=== PATIENT | male | born 1985 | race Hispanic/Latino ===

== ENCOUNTER 2017-11-11 19:16 | Emergency (ER) | payer SELFPAY ==
[2017-11-11] MEDS ORDERED: TETANUS & DIPHTHERIA TOX,ADULT 0.5 ML VIAL ONE (19:36)
[2017-11-11] MEDS ORDERED: HYDROCODONE/APAP 5/325 MG TAB ONE (19:36)
--- NOTE | 2017-11-11 20:01 | ER ---
Nurse's Notes [facility] Name: Russ Carl Age: 32 yrs Sex: Male : 1985 Arrival Date: 11/11/2017 Time: 19:18 Bed 27 Private MD: out of town, doctor Diagnosis: Laceration without foreign body, left ankle Presentation: 11/11 19:19 Presenting complaint: EMS states: Possible stingray sting to left inner ankle. ed1 Transition of care: patient was not received from another setting of care. Complicating Factors: There are no complicating factors for this patient. Onset of symptoms was November 11, 2017. Risk Assessment: Do you want to hurt yourself or someone else? Patient reports no desire to harm self or others. Initial Sepsis Screen: Does the patient meet any 2 criteria? No. Patient's initial sepsis screen is negative. Does the patient have a suspected source of infection? No. Patient's initial sepsis screen is negative. Care prior to arrival: wound cleansed. 19:19 Method Of Arrival: EMS: [facility] ed1 19:27 Acuity: ERASMO 4 fc Triage Assessment: 19:21 General: Appears uncomfortable, Behavior is calm, cooperative. Pain: Complains of pain ed1 in left medial malleolus Pain radiates to left leg Pain currently is 10 out of 10 on a pain scale. Quality of pain is described as throbbing, Pain began 30 min ago. Injury Description: Laceration sustained to left medial malleolus is clean, 0.5 to 2.5 cm long, not bleeding, was sustained 30-60 minutes ago. is bleeding no active bleeding noted. Historical: - Allergies: 19:21 No Known Allergies; ed1 - Home Meds: 19:21 None [Active]; ed1 - PMHx: 19:21 None; ed1 - PSHx: 19:21 None; ed1 - Immunization history:: Adult Immunizations up to date. - Social history:: Smoking status: unknown. - Ebola Screening: : Patient negative for fever greater than or equal to 101.5 degrees Fahrenheit, and additional compatible Ebola Virus Disease symptoms Patient denies exposure to infectious person Patient denies travel to an Ebola-affected area in the 21 days before illness onset No symptoms or risks identified at this time. Screenin:24 Abuse screen: Denies threats or abuse. Denies injuries from another. Nutritional ed1 screening: No deficits noted. Tuberculosis screening: No symptoms or risk factors identified. Fall Risk None identified. Assessment: 19:24 General: Appears uncomfortable, Behavior is calm, cooperative. Pain: Complains of pain ed1 in left medial malleolus Pain radiates to left leg Pain currently is 10 out of 10 on a pain scale. Quality of pain is described as throbbing, Pain began 30 min ago. Is continuous. Neuro: Level of Consciousness is awake, alert, obeys commands, Oriented to person, place, time, situation. Cardiovascular: Denies chest pain, Heart tones S1 S2 present. Respiratory: Airway is patent Respiratory effort is even, unlabored, Respiratory pattern is regular, symmetrical, Breath sounds are clear bilaterally. GI: No signs and/or symptoms were reported involving the gastrointestinal system. : No signs and/or symptoms were reported regarding the genitourinary system. EENT: No signs and/or symptoms were reported regarding the EENT system. Derm: Skin is healthy with good turgor, Skin is dry, Skin is normal, Skin temperature is warm. Musculoskeletal: Circulation, motion, and sensation intact. Range of motion: intact in all extremities. Injury Description: Laceration sustained to left medial malleolus is puncture was sustained 30-60 minutes ago. is bleeding no active bleeding noted. 19:27 Reassessment: I agree with above assessment. 20:17 Reassessment: No changes from previously documented assessment. Patient and/or family ed1 updated on plan of care and expected duration. Pain level reassessed. Patient is alert, oriented x 3, equal unlabored respirations, skin warm/dry/pink. Patient states symptoms have not improved. Vital Signs: 19:21 BP 171 / 106; Pulse 113; Resp 22; Temp 98.2(O); Pulse Ox 100% on R/A; Weight 83.91 kg; ed1 Height 5 ft. 7 in. (170.18 cm); Pain 10/10; 20:17 BP 156 / 94; Pulse 93; Resp 22; Pulse Ox 100% on R/A; Pain 9/10; ed1 19:21 Body Mass Index 28.97 (83.91 kg, 170.18 cm) ed1 ED Course: 19:18 Patient arrived in ED. ed1 19:19 [facility] pm1 19:19 Roger Yanez MD is Attending Physician. pm1 19:19 out of town, doctor is Private Physician. ed1 19:21 Arm band placed on right wrist. ed1 19:24 Patient has correct armband on for positive identification. Bed in low position. Call ed1 light in reach. Side rails up X 1. 19:27 Triage completed. 19:27 Gretchen Suazo LVN is Primary Nurse. ed1 19:37 X-ray completed. Portable x-ray completed in exam room. Patient tolerated procedure kp1 well. 19:38 Ankle Left 3 View XRAY In Process Unspecified. EDMS 20:17 No provider procedures requiring assistance completed. Patient did not have IV access ed1 during this emergency room visit. Administered Medications: 19:39 Drug: Tetanus-Diphtheria Toxoid Adult 0.5 ml {Pyrometer Operator: Md[employer]. Exp: ed1 01/07/2020. Lot #: [id number]. } Route: IM; Site: right deltoid; 20:16 Follow up: Response: No adverse reaction ed1 19:40 Drug: [place] 5 mg-325 mg 1 tabs Route: PO; ed1 20:15 Follow up: Response: No adverse reaction; Pain is unchanged, physician notified ed1 20:15 Drug: Doxycycline 100 mg Route: PO; ed1 20:17 Follow up: Response: Medication administered at discharge. ed1 Outcome: 20:00 Discharge ordered by MD. pm1 20:17 Discharged to home ambulatory. ed1 20:17 Condition: good 20:17 Discharge instructions given to patient, Instructed on discharge instructions, follow up and referral plans. medication usage, Demonstrated understanding of instructions, follow-up care, medications, Prescriptions given X 2. 20:20 Patient left the ED. ed1 Signatures: Dispatcher [employer] EDFL Renetta Del Rio RN RN Gretchen Suazo LVN LVN ed1 Alexander Dowell NP BEHAVIORAL HEALTH CARE MANAGER pm1 Huong Lopez [facility] Corrections: (The following items were deleted from the chart) 19:28 19:21 BP 171 / 106; Pulse 113bpm; Resp 22bpm; Pulse Ox 100% RA; Temp 98.2F Oral; Pain ed1 02/16; ed1
--- NOTE | 2017-11-11 20:01 | EDPHYS ---
Physician Documentation [facility] Name: Russ Carl Age: 32 yrs Sex: Male : 1985 Arrival Date: 11/11/2017 Time: 19:18 Bed 27 Private MD: out of town, doctor ED Physician Roger Yanez HPI: 11/11 19:45 This 32 yrs old Male presents to ER via EMS with complaints of Laceration. pm1 19:45 The patient presents with a laceration, 1 cm(s). The complaints affect the left ankle. pm1 Onset: The symptoms/episode began/occurred just prior to arrival. Context: [place] resulted from an unknown cause, The patient can fully bear weight on the affected extremity. the patient is able to ambulate. Associated signs and symptoms: Pertinent negatives: calf tenderness, fever, numbness, tingling. The patient has not experienced similar symptoms in the past. Patient was walking in the water and felt a sting to the inside of his left ankle area. Patient did not see what caused the injury. Historical: - Allergies: 19:21 No Known Allergies; ed1 - Home Meds: 19:21 None [Active]; ed1 - PMHx: 19:21 None; ed1 - PSHx: 19:21 None; ed1 - Immunization history:: Adult Immunizations up to date. - Social history:: Smoking status: unknown. - Ebola Screening: : Patient negative for fever greater than or equal to 101.5 degrees Fahrenheit, and additional compatible Ebola Virus Disease symptoms Patient denies exposure to infectious person Patient denies travel to an Ebola-affected area in the 21 days before illness onset No symptoms or risks identified at this time. ROS: 19:45 Constitutional: Negative for fever, chills, and weight loss, Eyes: Negative for injury, pm1 pain, redness, and discharge, ENT: Negative for injury, pain, and discharge, Neck: Negative for injury, pain, and swelling, Cardiovascular: Negative for chest pain, palpitations, and edema, Respiratory: Negative for shortness of breath, cough, wheezing, and pleuritic chest pain, Abdomen/GI: Negative for abdominal pain, nausea, vomiting, diarrhea, and constipation, Back: Negative for injury and pain. 19:45 Neuro: Negative for headache, weakness, numbness, tingling, and seizure. 19:45 MS/extremity: Positive for pain, of the left leg, Negative for decreased range of motion, paresthesias, tingling. 19:45 Skin: Positive for laceration(s), of the left medial malleolus, Negative for avulsion, cellulitis, discoloration. Exam: 19:45 Constitutional: This is a well developed, well nourished patient who is awake, alert, pm1 and in no acute distress. Head/Face: Normocephalic, atraumatic. Chest/axilla: Normal chest wall appearance and motion. Nontender with no deformity. No lesions are appreciated. Cardiovascular: Regular rate and rhythm with a normal S1 and S2. No gallops, murmurs, or rubs. Normal PMI, no JVD. No pulse deficits. Respiratory: Lungs have equal breath sounds bilaterally, clear to auscultation and percussion. No rales, rhonchi or wheezes noted. No increased work of breathing, no retractions or nasal flaring. Abdomen/GI: Soft, non-tender, with normal bowel sounds. No distension or tympany. No guarding or rebound. No evidence of tenderness throughout. Back: No spinal tenderness. No costovertebral tenderness. Full range of motion. 19:45 Skin: Appearance: normal except for affected area, injury, laceration(s), the wound is approximately 1 cm(s), of the medial aspect of foot just below left medial malleolus. 19:45 Neuro: Orientation: is normal, Motor: is normal, moves all fours, Sensation: is normal, no obvious gross deficits. Vital Signs: 19:21 BP 171 / 106; Pulse 113; Resp 22; Temp 98.2(O); Pulse Ox 100% on R/A; Weight 83.91 kg; ed1 Height 5 ft. 7 in. (170.18 cm); Pain 10/10; 20:17 BP 156 / 94; Pulse 93; Resp 22; Pulse Ox 100% on R/A; Pain 9/10; ed1 19:21 Body Mass Index 28.97 (83.91 kg, 170.18 cm) ed1 MDM: 19:21 Patient medically screened. pm1 19:49 Data reviewed: vital signs. Data interpreted: Pulse oximetry: on room air is 100 %. pm1 Interpretation: normal. Counseling: I had a detailed discussion with the patient and/or guardian regarding: the historical points, exam findings, and any diagnostic results supporting the discharge/admit diagnosis, radiology results, the need for outpatient follow up, to return to the emergency department if symptoms worsen or persist or if there are any questions or concerns that arise at home. 20:01 ED course: Laceration is 1 cm by 2 mm deep. Probed with sterile swab to determine pm1 depth. No foreign body present. Cleansed with Hibiclens and irrigated copiously with NS by me. Possible fish sting/laceration in saltwater. Will not close wound due to risk of infection and superficial depth. Will discharge to home with antibiotics and pain medications. 11/11 19:26 Order name: Ankle Left 3 View XRAY; Complete Time: 20:48 pm1 Administered Medications: 19:39 Drug: Tetanus-Diphtheria Toxoid Adult 0.5 ml {Sr Technical Sales Consultant: [employer]. Exp: ed1 01/07/2020. Lot #: [id number]. } Route: IM; Site: right deltoid; 20:16 Follow up: Response: No adverse reaction ed1 19:40 Drug: [place] 5 mg-325 mg 1 tabs Route: PO; ed1 20:15 Follow up: Response: No adverse reaction; Pain is unchanged, physician notified ed1 20:15 Drug: Doxycycline 100 mg Route: PO; ed1 20:17 Follow up: Response: Medication administered at discharge. ed1 Disposition: 22:26 Co-signature as Attending Physician, Roger Yanez MD. pkl Disposition: 11/11/17 20:00 Discharged to Home. Impression: Laceration without foreign body, left ankle. - Condition is Stable. - Discharge Instructions: Laceration Care, Adult. - Prescriptions for Tylenol- Codeine #3 300-30 mg Oral Tablet - take 2 tablets by ORAL route every 6 hours As needed; 20 tablet. Doxycycline Hyclate 100 mg Oral Tablet - take 1 tablet by ORAL route every 12 hours; 20 tablet. - Medication Reconciliation Form, Thank You Letter, Antibiotic Education, Prescription Opioid Use form. - Follow up: Emergency Department; When: As needed; Reason: Worsening of condition. Follow up: Private Physician; When: 2 - 3 days; Reason: Recheck today's complaints, Continuance of care, Re-evaluation by your physician. - Problem is new. - Symptoms have improved. Signatures: Dispatcher [employer] EDMS Roger Yanez MD MD pkl Riggs, Erika, [employer] ed1 Alexander Dowell, SIDE SAWYER SIDE SAWYER pm1 Corrections: (The following items were deleted from the chart) 20:20 20:00 11/11/2017 20:00 Discharged to Home. Impression: Laceration without foreign body, ed1 left ankle. Condition is Stable. Forms are Medication Reconciliation Form, Thank You Letter, Antibiotic Education, Prescription Opioid Use. Follow up: Emergency Department; When: As needed; Reason: Worsening of condition. Follow up: Private Physician; When: 2 - 3 days; Reason: Recheck today's complaints, Continuance of care, Re-evaluation by your physician. Problem is new. Symptoms have improved. pm1
--- NOTE | 2017-11-11 20:12 | RAD REPORT ---
EXAM DESCRIPTION: RAD - Ankle Left 3 View - 11/11/2017 7:42 pm CLINICAL HISTORY: Sting ray injury, possible foreign body COMPARISON: None. FINDINGS: No fracture, dislocation or periosteal reaction. No joint effusion seen. No joint space na rrowing. No soft tissue abnormality. IMPRESSION: Negative left ankle for fracture or other acute finding. No foreign body identified.
[2017-11-11] MEDS ORDERED: DOXYCYCLINE 100 MG CAP PO ONE (20:13)
== END 2017-11-11 20:20 | disposition home or self-care (01) ==
LOC: ER 19:16
DX: S91.012A Laceration without foreign body, left ankle, initial encounter (principal); Y93.01 Activity, walking, marching and hiking; Y93.89 Activity, other specified; Y92.89 Other specified places as the place of occurrence of the external cause; Y99.8 Other external cause status; Z23 Encounter for immunization
CPT/HCPCS: 90714; 99284